=== PATIENT | female | born 1960 | race Caucasian/White ===

== ENCOUNTER 2017-02-22 09:14 | Inpatient (IN) | payer BC ==
[2017-02-22] MEDS ORDERED: TUSSIONEX PENNKINETIC SUSP PO PRN (10:06)
[2017-02-22] MEDS ORDERED: NS 1/2 1000 ML IV 1,000 ML IV ONE (10:32)
[2017-02-22] MEDS ORDERED: SALINE 3% 15 ML NEB TX ONE (10:44)
[2017-02-22] MEDS ORDERED: SALINE 3% 15 ML NEB TX NEB ONE (10:45)
[2017-02-22 10:49] VITALS: BMI 33.6
[2017-02-22 10:55] LABS: BASOPHILS % (AUTO) 0.4 % (0.2-1.0); HEMATOCRIT 45.5 % (36.0-47.0); HEMOGLOBIN 15.4 g/dL (12.0-16.0); LYMPHOCYTES # (AUTO) 0.5 X10^3/uL (1.3-2.9); LYMPHOCYTES % (AUTO) 14.8 % (21.0-51.0); MEAN CORPUSCULAR HEMOGLOBIN 29.2 pg (27.0-34.0); MEAN CORPUSCULAR HGB CONC 33.9 g/dL (33.0-35.0); MEAN CORPUSCULAR VOLUME 86.2 fL (80.0-100.0); MEAN PLATELET VOLUME 7.9 fL (7.4-11.0); MONOCYTES # (AUTO) 0.5 x10^3/uL (0.3-0.8); MONOCYTES % (AUTO) 15.2 % (0.0-13.0); NEUTROPHILS # (AUTO) 2.2 x10^3/uL (2.2-4.8); NEUTROPHILS % (AUTO) 68.6 % (42.0-75.0); PLATELET COUNT 169 X10^3/uL (150.0-450.0); RED BLOOD COUNT 5.28 X10^6/uL (3.5-5.4); RED CELL DISTRIBUTION WIDTH 14.1 % (11.6-16.5); WHITE BLOOD COUNT 3.2 X10^3/uL (3.6-10.0)
[2017-02-22 11:01] LABS: ALANINE AMINOTRANSFERASE 22 Units/L (12-78); ALBUMIN 3.2 g/dL (3.4-5.0); ALKALINE PHOSPHATASE 74 Units/L (46-116); ASPARTATE AMINO TRANSFERASE 25 Units/L (15-37); BLOOD UREA NITROGEN 11 mg/dL (7-18); CALCIUM 8.8 mg/dL (8.5-10.1); CHLORIDE 105 mmol/L (98-107); COR CA(FOR HYPOALB) 9.4 mg/dL (8.5-10.1); CREATININE 0.93 mg/dL (0.55-1.02); GLUCOSE 100 mg/dL (65-99); SODIUM 142 mmol/L (136-145); TOTAL PROTEIN 7.2 g/dL (6.4-8.2); eGFR BLACK RACES > 60 (>60); eGFR NON BLACK RACES > 60 (>60)
[2017-02-22] MEDS: LEVAQUIN PREMIX IV 750 MG 750 MG/150 ML BAG IV SCH (11:56)
[2017-02-22] MEDS: DUONEB 0.5 MG/3 MG NEB SCH ×3 (12:13→20:26)
[2017-02-22] MEDS: ROBITUSSIN DM PO SCH ×3 (13:23→20:59)
[2017-02-22] MEDS: NS 1/2 1000 ML IV 1,000 ML IV SCH (13:24)
--- NOTE | 2017-02-22 14:44 | RAD ---
HISTORY: Pneumonia Study: Two view chest Comparison: None Findings: The lungs are clear without consolidation, effusion or pneumothorax. The cardiac and mediastinal co ntours are within normal limits. The soft tissues are unremarkable. IMPRESSION: 1. No acute cardiopulmonary abnormality. Reported By:
--- NOTE | 2017-02-22 16:33 | DR.H&P ---
H&P - History & Physical for Day of: H&P Date: 02/22/17 - Chief Complaint Chief Complaint: cough, wheezing weakness, n/v - Allergies Allergies/Adverse Reactions: Allergies Allergy/AdvReac Type Severity Reaction Status Date / Time No Known Drug Allergy Allergy Verified 02/22/17 10:06 - History of Present Illness History of Present Illness: DIRECT ADMIT FROM DR CR OFFICE AFTER FAILING OP TREATMENT FOR BRONCHITIS. PT HAD INJECTIONS ROCEPHIN AND STEROIDS AND ROUND OF ATBX. PT HAS NOT IMPROVED. PT CO TODAY OF WEAKNESS, N/V, AND COUGH WITH WHEEZING. - Past Medical History Past Medical History: GERD, Hypertension - Past Surgical History Surgical History: Tonsillectomy, Other - Family History Family Medical History: Diabetes Mellitus, Cancer, [place], Heart Failure, Hypertension - Social History Does patient currently use any type of tobacco product: No Have you used tobacco products in the last 12 months: No Type of Tobacco Use: None Does any household member use tobacco: No Alcohol Use: None Drug Use: Prescription Drugs - Review of Systems Constitutional: Fever, Chills, Weakness Eyes: No Symptoms Reported ENT: Throat Pain Respiratory: Cough, Wheezing Cardiovascular: No Symptoms Reported Gastrointestinal: Nausea, Vomiting Genitourinary: No Symptoms Reported Musculoskeletal: No Symptoms Reported Skin: No Symptoms Reported Neurological: No Symptoms Reported - Physical Exam Vital Signs: Temperature 98.2 F Pulse Rate [Right Brachial] 73 Pulse Rate 63 Respiratory Rate 18 Blood Pressure [Left Arm] 115/74 O2 Sat by Pulse Oximetry 96 Oriented: Normal Eyes: Normal Ear: Normal Nose: Normal Throat: Normal Respiratory: Wheezes Throughout Cardiovascular: Normal : Normal Auscultation: Bowel Sounds: Normal Palpation: Normal Skin: Normal Musculoskeletal: Normal Affect: Anxious Speech Pattern: Clear, Appropriate - Assessment/Plan (1) Bronchitis Status: Acute Plan: ADMIT, PNEUMONIA PATHWAY. BLOOD AND SPUTUM CULTURES. CXR, RESP THERAPY, IV ATBX (2) Fever Qualifiers: Fever type: F Encounter type: E Status: Acute Plan: ADMIT, ADMISSION LABS, FLU SWAB. FEVER CONTROL (3) Hypertension Qualifiers: Hypertension type: H Status: Acute
[2017-02-22] MEDS ORDERED: XANAX PO PRN (16:36)
[2017-02-22] MEDS ORDERED: TORADOL 30 MG VIAL IVP PRN (16:36)
[2017-02-22] MEDS: SOLU-MEDROL 125 MG VIAL IVP SCH (20:59)
[2017-02-23] MEDS: DUONEB 0.5 MG/3 MG NEB SCH ×6 (01:04→20:15)
[2017-02-23] MEDS: NS 1/2 1000 ML IV 1,000 ML IV SCH ×2 (01:32→16:53)
[2017-02-23] MEDS ORDERED: NS 1/2 1000 ML IV 1,000 ML IV ONE ×2 (03:44→16:21)
[2017-02-23 05:30] LABS: ALANINE AMINOTRANSFERASE 25 Units/L (12-78); ALBUMIN 2.8 g/dL (3.4-5.0); ALKALINE PHOSPHATASE 68 Units/L (46-116); ASPARTATE AMINO TRANSFERASE 25 Units/L (15-37); BLOOD UREA NITROGEN 10 mg/dL (7-18); CALCIUM 8.5 mg/dL (8.5-10.1); CHLORIDE 106 mmol/L (98-107); COR CA(FOR HYPOALB) 9.5 mg/dL (8.5-10.1); COR NA(FOR HYPERGLY) 144 mmol/L (136-145); CREATININE 1.06 mg/dL (0.55-1.02); GLUCOSE 227 mg/dL (65-99); SODIUM 141 mmol/L (136-145); TOTAL PROTEIN 6.6 g/dL (6.4-8.2); eGFR BLACK RACES > 60 (>60); eGFR NON BLACK RACES 57 (>60)
[2017-02-23] MEDS: SOLU-MEDROL 125 MG VIAL IVP SCH ×2 (05:39→13:59)
[2017-02-23 05:48] LABS: BASOPHILS % (AUTO) 0.3 % (0.2-1.0); EOSINOPHILS % (AUTO) 0.2 % (0.9-2.9); HEMATOCRIT 43.2 % (36.0-47.0); HEMOGLOBIN 14.7 g/dL (12.0-16.0); LYMPHOCYTES # (AUTO) 0.3 X10^3/uL (1.3-2.9); LYMPHOCYTES % (AUTO) 18.3 % (21.0-51.0); MEAN CORPUSCULAR HEMOGLOBIN 29.7 pg (27.0-34.0); MEAN CORPUSCULAR VOLUME 87.3 fL (80.0-100.0); MONOCYTES # (AUTO) 0.1 x10^3/uL (0.3-0.8); MONOCYTES % (AUTO) 4.8 % (0.0-13.0); NEUTROPHILS # (AUTO) 1.1 x10^3/uL (2.2-4.8); NEUTROPHILS % (AUTO) 76.4 % (42.0-75.0); PLATELET COUNT 154 X10^3/uL (150.0-450.0); RED BLOOD COUNT 4.95 X10^6/uL (3.5-5.4); RED CELL DISTRIBUTION WIDTH 14.3 % (11.6-16.5)
[2017-02-23 05:51] LABS: WHITE BLOOD COUNT 1.4 X10^3/uL (3.6-10.0)
[2017-02-23 05:52] LABS: CARBON DIOXIDE 18.7 mmol/L (21-32)
[2017-02-23] MEDS: ROBITUSSIN DM PO SCH ×4 (10:21→21:03)
[2017-02-23] MEDS: LEVAQUIN PREMIX IV 750 MG 750 MG/150 ML BAG IV SCH (10:21)
[2017-02-23] MEDS: TAMIFLU PO SCH ×2 (10:21→21:03)
--- NOTE | 2017-02-23 18:16 | PCM.PROG ---
Progress Note - Progress Note for Day of Date: 02/23/17 - Subjective Subjective: 56 WF ADMITTED ONE DAY AGO WITH AB AND INFLUENZA. PT CO COUGH AND BODYACHES. PLAN TO CONTINUE CURRENT MEDS. REPEAT AM LABS - Past Medical Family Social History Past Med/Fam/Surg Hx: No changes since H&P Allergies: Allergies No Known Drug Allergy Allergy (Verified 02/22/17 10:06) - Review of Systems ROS: No change since H&P - Vital Signs and I&O's Vital Signs: Temperature 97.8 F Pulse Rate [Right Brachial] 84 Pulse Rate 78 Respiratory Rate 20 Blood Pressure [Right Arm] 139/64 Blood Pressure [Left Arm] 112/65 O2 Sat by Pulse Oximetry 94 Intake and Output: Intake & Output 02/21/17 02/22/17 02/23/17 02/24/17 11:59 11:59 11:59 11:59 Intake Total 2100 880 Balance 2100 880 - Physical Exam Oriented: Normal Eyes: Normal Ear: Normal Nose: Normal Throat: Normal Respiratory: Wheezes, Rhonchi Cardiovascular: Normal : Normal Auscultation: Bowel Sounds: Normal Skin: Normal Musculoskeletal: Normal Affect: Anxious Speech Pattern: Clear, Appropriate - Laboratory and Diagnostics Result Diagrams: 02/23/17 04:00 02/23/17 04:00 Labs: 02/22/17 11:36 Sputum - Expectorated Sputum Sputum Culture - Preliminary 02/22/17 11:36 Sputum - Expectorated Sputum - Final Laboratory WBC 1.4 X10^3/uL (3.6-10.0) L* 02/23/17 04:00 RBC 4.95 X10^6/uL (3.5-5.4) 02/23/17 04:00 Hgb 14.7 g/dL (12.0-16.0) 02/23/17 04:00 Hct 43.2 % (36.0-47.0) 02/23/17 04:00 MCV 87.3 fL (80.0-100.0) 02/23/17 04:00 MCH 29.7 pg (27.0-34.0) 02/23/17 04:00 MCHC 34.0 g/dL (33.0-35.0) 02/23/17 04:00 RDW 14.3 % (11.6-16.5) 02/23/17 04:00 Plt Count 154 X10^3/uL (150.0-450.0) 02/23/17 04:00 MPV 8.0 fL (7.4-11.0) 02/23/17 04:00 Neut % 76.4 % (42.0-75.0) H 02/23/17 04:00 Lymph % 18.3 % (21.0-51.0) L 02/23/17 04:00 [place] % 4.8 % (0.0-13.0) 02/23/17 04:00 Eos % 0.2 % (0.9-2.9) L 02/23/17 04:00 Baso % 0.3 % (0.2-1.0) 02/23/17 04:00 Neut # 1.1 x10^3/uL (2.2-4.8) L 02/23/17 04:00 Lymph # 0.3 X10^3/uL (1.3-2.9) L 02/23/17 04:00 [place] # 0.1 x10^3/uL (0.3-0.8) L 02/23/17 04:00 Eos # 0.0 x10^3/uL (0.0-0.2) 02/23/17 04:00 Baso # 0.0 X10^3/uL (0.0-0.1) 02/23/17 04:00 Absolute Nucleated RBC 0.1 /100WBC 02/23/17 04:00 Sodium 141 mmol/L (136-145) 02/23/17 04:00 Corrected Sodium 144 mmol/L (136-145) 02/23/17 04:00 Potassium 3.5 mmol/L (3.5-5.1) 02/23/17 04:00 Chloride 106 mmol/L (98-107) 02/23/17 04:00 Carbon Dioxide 18.7 mmol/L (21-32) L 02/23/17 04:00 BUN 10 mg/dL (7-18) 02/23/17 04:00 Creatinine 1.06 mg/dL (0.55-1.02) H 02/23/17 04:00 Est GFR (MDRD) Af Amer > 60 (>60) 02/23/17 04:00 Est GFR (MDRD) Non-Af 57 (>60) L 02/23/17 04:00 Glucose 227 mg/dL (65-99) H 02/23/17 04:00 Calcium 8.5 mg/dL (8.5-10.1) 02/23/17 04:00 Corrected Calcium 9.5 mg/dL (8.5-10.1) 02/23/17 04:00 Total Bilirubin 0.20 mg/dL (0.2-1.0) 02/23/17 04:00 AST 25 Units/L (15-37) 02/23/17 04:00 ALT 25 Units/L (12-78) 02/23/17 04:00 Alkaline Phosphatase 68 Units/L (46-116) 02/23/17 04:00 Total Protein 6.6 g/dL (6.4-8.2) 02/23/17 04:00 Albumin 2.8 g/dL (3.4-5.0) L 02/23/17 04:00 Globulin 3.8 g/dL (2.5-4.5) 02/23/17 04:00 Albumin/Globulin Ratio 0.7 Ratio (1.1-2.1) L 02/23/17 04:00 Influenza A (H1N1) PCR Not detected (NOT DETECT) 02/22/17 17:02 Influenza Type A (PCR) Positive (NEGATIVE) A 02/22/17 17:02 Influenza Type B (PCR) Negative (NEGATIVE) 02/22/17 17:02 - Plan (1) Bronchitis Status: Acute Plan: CONTINUE PNEUMONIA PATHWAY. BLOOD AND SPUTUM CULTURES PENDING. CXR, RESP THERAPY, IV ATBX (2) Fever Status: Acute Qualifiers: Fever type: F Encounter type: E Plan: ADMIT, ADMISSION LABS, FLU SWAB. FEVER CONTROL (3) Hypertension Status: Acute Qualifiers: Hypertension type: H (4) Influenza Status: Acute Plan: CONTINUE TAMIFLU
[2017-02-24] MEDS: DUONEB 0.5 MG/3 MG NEB SCH ×4 (00:52→13:19)
[2017-02-24 05:30] LABS: ALANINE AMINOTRANSFERASE 55 Units/L (12-78); ALBUMIN 2.7 g/dL (3.4-5.0); ALKALINE PHOSPHATASE 67 Units/L (46-116); ASPARTATE AMINO TRANSFERASE 41 Units/L (15-37); BLOOD UREA NITROGEN 9 mg/dL (7-18); CALCIUM 8.9 mg/dL (8.5-10.1); CARBON DIOXIDE 23.5 mmol/L (21-32); CHLORIDE 108 mmol/L (98-107); COR CA(FOR HYPOALB) 9.9 mg/dL (8.5-10.1); COR NA(FOR HYPERGLY) 142 mmol/L (136-145); CREATININE 0.76 mg/dL (0.55-1.02); GLUCOSE 134 mg/dL (65-99); MAGNESIUM 1.9 mg/dL (1.7-2.9); SODIUM 141 mmol/L (136-145); TOTAL PROTEIN 6.3 g/dL (6.4-8.2); eGFR BLACK RACES > 60 (>60); eGFR NON BLACK RACES > 60 (>60)
[2017-02-24] MEDS: NS 1/2 1000 ML IV 1,000 ML IV SCH (05:48)
[2017-02-24 06:26] LABS: BASOPHILS % (AUTO) 0.1 % (0.2-1.0); HEMATOCRIT 41.1 % (36.0-47.0); LYMPHOCYTES # (AUTO) 0.6 X10^3/uL (1.3-2.9); LYMPHOCYTES % (AUTO) 11.2 % (21.0-51.0); MEAN CORPUSCULAR HEMOGLOBIN 29.2 pg (27.0-34.0); MEAN CORPUSCULAR VOLUME 85.7 fL (80.0-100.0); MEAN PLATELET VOLUME 7.9 fL (7.4-11.0); MONOCYTES # (AUTO) 0.7 x10^3/uL (0.3-0.8); MONOCYTES % (AUTO) 13.1 % (0.0-13.0); NEUTROPHILS % (AUTO) 75.6 % (42.0-75.0); PLATELET COUNT 148 X10^3/uL (150.0-450.0); RED CELL DISTRIBUTION WIDTH 14.5 % (11.6-16.5); WHITE BLOOD COUNT 5.3 X10^3/uL (3.6-10.0)
[2017-02-24] MEDS: ROBITUSSIN DM PO SCH (08:40)
[2017-02-24] MEDS: TAMIFLU PO SCH (08:40)
[2017-02-24] MEDS: LEVAQUIN PREMIX IV 750 MG 750 MG/150 ML BAG IV SCH (08:41)
[2017-02-24 14:07] VITALS: BP 127/75
== END 2017-02-24 13:40 | disposition home or self-care (01) | DRG 203 ==
LOC: MED/SURG 09:14
PROVIDERS: ADMIT Internal Medicine; ATTEND Internal Medicine
DX: J20.8 Acute bronchitis due to other specified organisms (principal); J10.1 Influenza due to other identified influenza virus with other respiratory manifestations; R53.1 Weakness; R11.2 Nausea with vomiting, unspecified; K21.9 Gastro-esophageal reflux disease without esophagitis; I10 Essential (primary) hypertension; R50.9 Fever, unspecified
CPT/HCPCS: 36415; 71020; 80053; 83735; 85025; 87040; 87070; 87205; 87502; 87503; 94640; 94760; A4222; G9035; J1885; J1956; J2930; J7620

== ENCOUNTER 2017-12-05 16:19 | Emergency (ER) | payer BC, OTHER ==
[2017-12-05 16:25] VITALS: BP 173/107; BMI 32.9
[2017-12-05] MEDS ORDERED: ADACEL TDaP IM ONE ×2 (17:52→17:54)
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
[2017-12-05] MEDS ORDERED: BACITRACIN ZINC ONE (19:07)
[2017-12-05] MEDS ORDERED: AUGMENTIN 500 MG/125 MG TAB PO ONE ×2 (19:17→19:20)
[2017-12-05] MEDS ORDERED: TYLENOL #3 TAB (W/CODEINE) PO ONE ×2 (19:18→19:20)
[2017-12-05] MEDS ORDERED: MOTRIN TAB 600 MG PO ONE ×2 (19:19→19:21)
== END 2017-12-05 19:24 | disposition home or self-care (01) ==
LOC: ER 16:32
PROC: 0XQ9XZZ Repair Left Upper Arm, External Approach (ICD-10-PCS; principal; 2017-12-05)
DX: S51.832A Puncture wound without foreign body of left forearm, initial encounter (principal); S61.231A Puncture wound without foreign body of left index finger without damage to nail, initial encounter; W54.0XXA Bitten by dog, initial encounter; Y92.9 Unspecified place or not applicable
CPT/HCPCS: 90471; 99282; 99283